=== PATIENT | male | born 1940 | race Caucasian/White ===

== ENCOUNTER 2016-05-17 14:09 | Inpatient (IN) | payer OTHER, BC ==
--- NOTE | 2016-05-17 14:46 | EDPHY ---
H & P Smoking Status: Never smoked Time Seen by Provider: 05/17/16 14:27 HPI/ROS: Chief complaint. supra pubic catheter problem HPI. Patient is 76-year-old male who has a suprapubic catheter in place because the patient has a history of transverse myelitis. The patient tells me that 1 week ago the catheter was changed and he believes they put in a smaller diameter catheter. Since then it has been leaking around the catheter. Urine is maybe also had some blood in it and has been a little bit cloudy. However he has no pain or fever. However the family says that the patient has been shaking quite a bit ROS Constitutional. no fever/chills, no weakness Eyes. no problems with vision ENT. no sore throat, no nasal drainage Cardiovascular. no chest pain Respiratory. no shortness of breath, no cough Abdominal. no abdominal pain, no nausea/vomiting, no diarrhea . Leaking around suprapubic catheter MS. no calf pain/swelling, no neck/back pain, no joint pain Skin. no rash Lymph. no swollen glands Neuro. no headache, no dizziness, no difficulty walking or with speech (Pedrito Plasencia) Past Medical/Surgical History: Past medical history transverse myelitis, atrial fibrillation, diabetes, hypertension, chronic sacral wound (Pedrito Plasencia) Social History: , nonsmoker, no alcohol (Pedrito Plasencia) Physical Exam: General Appearance: Alert well-developed male mild distress vital signs are stable. Afebrile Eyes: Pupils equal and round no pallor or injection. ENT, Mouth: Mucous membranes are moist. Respiratory: There are no retractions, lungs are clear to auscultation. Cardiovascular: Regular rate and rhythm. Gastrointestinal: Abdomen is soft and nontender, no masses, bowel sounds normal. Neurological: Awake and alert, sensory and motor exams grossly normal. Skin: Suprapubic catheter in place. There is gauze around and covering the catheter exit site from the skin. I removed this and the gauze soaked in urine Musculoskeletal: Neck is supple nontender. Extremities symmetrical, full range of motion. Psychiatric: Patient is oriented X 3, there is no agitation. (Pedrito Plasencia) Constitutional: Initial Vital Signs Temperature (C) 36.7 C 05/17/16 14:22 Heart Rate 79 05/17/16 14:22 Respiratory Rate 17 05/17/16 14:22 Blood Pressure 106/68 05/17/16 14:22 O2 Sat (%) 98 05/17/16 14:22 O2 Delivery Mode Room Air Allergies/Adverse Reactions: No Known Allergies Allergy (Unverified 05/17/16 14:16) Home Medications: Medication Instructions Recorded Acetaminophen [Tylenol 325mg (*)] 650 mg PO Q6 PRN 05/17/16 Apixaban [Eliquis] 5 mg PO BID 05/17/16 Aspirin [Aspirin 81mg (*)] 81 mg PO DAILY 05/17/16 Baclofen [Baclofen 10 mg (*)] 10 mg PO TID 05/17/16 Ferrous Sulfate [Ferrous Sulf 325 325 mg PO MOWEFR 05/17/16 MG (*)] Gabapentin [Neurontin 300 MG (*)] 300 mg PO TID 05/17/16 Hydrocortisone 1% [Hydrocortisone 1 carlton TP DAILY 05/17/16 1% cream (*)] Lisinopril [Zestril 20 mg (*)] 20 mg PO HS 05/17/16 Melatonin [Melatonin 3 MG (*)] 3 mg PO HS PRN 05/17/16 Metformin HCl [Metformin HCl ER] 500 mg PO DAILY 05/17/16 Methocarbamol [Robaxin 750 mg (*)] 750 mg PO QID 05/17/16 Metoprolol Succinate Xr [Toprol Xl 25 mg PO DAILY 05/17/16 25 mg (*)] Pantoprazole Sodium [Protonix 40mg 40 mg PO DAILY PRN 05/17/16 (*)] Sennosides/Docusate Sodium 1 each PO Q48H PRN 05/17/16 [Senna-Docusate Sodium Tablet] Simvastatin 80 mg PO HS 05/17/16 Tamsulosin HCl [Flomax 0.4 MG (*)] 0.4 mg PO HS 05/17/16 oxyCODONE/APAP 5/325 [Percocet 1 tab PO Q6H PRN 05/17/16 5/325 (*)] Medical Decision Making ED Course/Re-evaluation: Urine sent for urinalysis I consulted and discussed case with Dr. Hill, urology, who recommends an ultrasound to check for placement of the catheter. He recommends urinalysis which is underway. And then if no significant infection and the placement of the suprapubic catheter is correct using VESIcare as an anti cholinergic for spasm. (Pedrito Plasencia) The patient was signed out to me by Dr. Plasencia at shift change. UA and ultrasound are pending. Urinalysis shows infection. WBC is elevated. Lactic acid of 2.5 corresponding with sepsis. I spoke to Dr. Hare who will admit the patient. (Erica Gooden ) Other Provider: I assumed care of this patient Dr. Pedrito Plasencia at approximately 3:30 p.m.. At that time an ultrasound to assess the position of his suprapubic catheter was pending. I received a report on the ultrasound from Dr. Liam Lisa. He reported that the catheter is in the bladder but appears to be embedded in the posterior wall of the bladder with some surrounding bleeding. I spoke with Dr. Markie Hill who also spoke with Dr. Lisa. It was recommended that the patient's bladder be filled using a large syringe with the hope that the catheter tip will float away from the bladder wall. When interviewing the patient I learned that he has had leakage both around the site of his suprapubic insertion and also from the urethra. He has never had this prior to having the catheter changed last week. Patient's informed me that he was recently treated for hyponatremia. She is concerned that he is more lethargic than usual. At the time of my interview was awake and alert, responding appropriately. Family has requested blood work. It turns out that blood work had been ordered earlier, but not drawn. While waiting for blood to be drawn he developed a temperature of 38.5. This was treated with oral Tylenol. I re-examined him at that time. Lungs are clear. Heart is regular rate and rhythm. He is normotensive. Abdomen is soft and nontender. Blood work reveals white blood cell count 39220. Initial lactate is 2.5. As these results became available picture of sepsis began to emerge. His urinalysis shows bilirubin, leukocyte esterase, white blood cells, red blood cells, and bacteria. He has an indwelling suprapubic catheter. He was treated with IV ertapenem and IV vancomycin. He received a fluid bolus. Repeat lactate was 1.8. He is diagnosed with severe sepsis but does not have septic shock. He also has a known sacral ulcer that his has been caring for. He is being admitted to the hospitalist service by Dr. Jimmy Hare. (Erica Gooden) Care Turn Over: Dr. Gooden at 1500 (Pedrito Plasencia) - Data Points Laboratory Results: Laboratory Results 05/17/16 17:40 05/17/16 17:40 05/17/16 05/17/16 05/17/16 19:15 18:10 18:10 WBC RBC Hgb Hct MCV MCH MCHC RDW Plt Count MPV Neut % (Auto) Lymph % (Auto) Divide % (Auto) Eos % (Auto) Baso % (Auto) Nucleat RBC Rel Count Absolute Neuts (auto) Absolute Lymphs (auto) Absolute Monos (auto) Absolute Eos (auto) Absolute Basos (auto) Absolute Nucleated RBC Immature Gran % Immature Gran # PT 17.6 SEC H SEC (12.0-15.0) INR 1.45 H (0.83-1.16) APTT 29.8 SEC SEC (23.0-38.0) VBG Lactic Acid 1.8 mmol/L mmol/L (0.7-2.1) Sodium Potassium Chloride Carbon Dioxide Anion Gap BUN Creatinine Estimated GFR Glucose Calcium Total Bilirubin 0.6 mg/dL mg/dL (0.1-1.4) Urine Color Urine Appearance Urine pH Ur Specific [place] Urine Protein Urine Ketones Urine Blood Urine Nitrate Urine Bilirubin Urine Urobilinogen Ur Leukocyte Esterase Urine RBC Urine WBC Ur Epithelial Cells Triple Phos Crystals Amorphous Sediment Urine Bacteria Hyaline Casts Urine Mucus Ur Culture Indicated? Urine Glucose 05/17/16 05/17/16 05/17/16 17:40 17:40 17:40 WBC 23.70 10^3/uL H 10^3/uL (3.80-9.50) RBC 4.40 10^6/uL 10^6/uL (4.40-6.38) Hgb 12.7 g/dL L g/dL (13.7-17.5) Hct 38.2 % L % (40.0-51.0) MCV 86.8 fL fL (81.5-99.8) MCH 28.9 pg pg (27.9-34.1) MCHC 33.2 g/dL g/dL (32.4-36.7) RDW 16.1 % H % (11.5-15.2) Plt Count 311 10^3/uL 10^3/uL (150-400) MPV 8.8 fL fL (8.7-11.7) Neut % (Auto) 83.5 % H % (39.3-74.2) Lymph % (Auto) 7.6 % L % (15.0-45.0) Divide % (Auto) 7.3 % % (4.5-13.0) Eos % (Auto) 0.5 % L % (0.6-7.6) Baso % (Auto) 0.6 % % (0.3-1.7) Nucleat RBC Rel Count 0.0 % % (0.0-0.2) Absolute Neuts (auto) 19.79 10^3/uL H 10^3/uL (1.70-6.50) Absolute Lymphs (auto) 1.79 10^3/uL 10^3/uL (1.00-3.00) Absolute Monos (auto) 1.73 10^3/uL H 10^3/uL (0.30-0.80) Absolute Eos (auto) 0.12 10^3/uL 10^3/uL (0.03-0.40) Absolute Basos (auto) 0.14 10^3/uL H 10^3/uL (0.02-0.10) Absolute Nucleated RBC 0.00 10^3/uL 10^3/uL (0-0.01) Immature Gran % 0.5 % % (0.0-1.1) Immature Gran # 0.13 10^3/uL H 10^3/uL (0.00-0.10) PT INR APTT VBG Lactic Acid 2.5 mmol/L H mmol/L (0.7-2.1) Sodium 135 mEq/L mEq/L (134-144) Potassium 4.7 mEq/L mEq/L (3.5-5.2) Chloride 96 mEq/L L mEq/L (97-110) Carbon Dioxide 25 mEq/l mEq/l (22-31) Anion Gap 14 mEq/L mEq/L (8-16) BUN 27 mg/dL H mg/dL (7-23) Creatinine 1.0 mg/dL mg/dL (0.7-1.3) Estimated GFR > 60 Glucose 142 mg/dL H mg/dL (70-100) Calcium 9.6 mg/dL mg/dL (8.5-10.4) Total Bilirubin Urine Color Urine Appearance Urine pH Ur Specific [place] Urine Protein Urine Ketones Urine Blood Urine Nitrate Urine Bilirubin Urine Urobilinogen Ur Leukocyte Esterase Urine RBC Urine WBC Ur Epithelial Cells Triple Phos Crystals Amorphous Sediment Urine Bacteria Hyaline Casts Urine Mucus Ur Culture Indicated? Urine Glucose 05/17/16 16:10 WBC RBC Hgb Hct MCV MCH MCHC RDW Plt Count MPV Neut % (Auto) Lymph % (Auto) Divide % (Auto) Eos % (Auto) Baso % (Auto) Nucleat RBC Rel Count Absolute Neuts (auto) Absolute Lymphs (auto) Absolute Monos (auto) Absolute Eos (auto) Absolute Basos (auto) Absolute Nucleated RBC Immature Gran % Immature Gran # PT INR APTT VBG Lactic Acid Sodium Potassium Chloride Carbon Dioxide Anion Gap BUN Creatinine Estimated GFR Glucose Calcium Total Bilirubin Urine Color YELLOW Urine Appearance TURBID Urine pH 9.0 H (5.0-7.5) Ur Specific [place] 1.029 (1.002-1.030) Urine Protein 3+ H (NEGATIVE) Urine Ketones NEGATIVE (NEGATIVE) Urine Blood NEGATIVE (NEGATIVE) Urine Nitrate NEGATIVE (NEGATIVE) Urine Bilirubin POSITIVE H (NEGATIVE) Urine Urobilinogen NEGATIVE EU EU (0.2-1.0) Ur Leukocyte Esterase 2+ H (NEGATIVE) Urine RBC 50-182 /hpf H /hpf (0-3) Urine WBC 50-182 /hpf H /hpf (0-3) Ur Epithelial Cells TRACE /lpf /lpf (NONE-1+) Triple Phos Crystals PRESENT /hpf /hpf (NONE-1+) Amorphous Sediment PRESENT /hpf /hpf (NONE-1+) Urine Bacteria 2+ /hpf H /hpf (NONE SEEN) Hyaline Casts 15-25 /lpf H /lpf (0-1) Urine Mucus 3+ /lpf H /lpf (NONE-1+) Ur Culture Indicated? INDICATED H (NI) Urine Glucose NEGATIVE (NEGATIVE) Medications Given: Discontinued Medications Acetaminophen (Tylenol) 650 mg PO EDNOW ONE Stop: 05/17/16 17:50 Last Admin: 05/17/16 18:00 Dose: 650 mg Ertapenem 1 gm/ Sodium (Chloride) 100 mls @ 200 mls/hr IV EDNOW ONE PRN Reason: Protocol Stop: 05/17/16 18:42 Last Admin: 05/17/16 20:10 Dose: 100 mls Vancomycin/Sodium Chloride (Vancomycin 1 Gm (Premix)) 250 mls @ 250 mls/hr IV EDNOW ONE PRN Reason: Protocol Stop: 05/17/16 19:12 Last Admin: 05/17/16 18:35 Dose: 250 mls Sodium Chloride (Ns *For Sepsis Order Set Only*) 2,041 ml 30 ml/kg (2041 ml) IV EDNOW ONE Stop: 05/17/16 18:07 Last Admin: 05/17/16 18:00 Dose: 2,041 ml Departure - Departure Disposition: [facility] Inpatient Acute Clinical Impression: UTI (urinary tract infection) Qualifiers: Urinary tract infection type: catheter-associated UTI Indwelling urinary catheter type: indwelling urethral catheter Encounter type: initial encounter Qualified Code(s): T83.511A - Infection and inflammatory reaction due to indwelling urethral catheter, initial encounter; N39.0 - Urinary tract infection , site not specified Sepsis Qualifiers: Sepsis type: sepsis due to unspecified organism Qualified Code(s): A41.9 - Sepsis, unspecified organism Condition: Fair
[2016-05-17 16:43] LABS: COLOR YELLOW; LEUKOCYTE ESTERASE,URINE 2+ (NEGATIVE); NITRITE,URINE NEGATIVE (NEGATIVE)
[2016-05-17 16:45] LABS: AMORPHOUS PRESENT /hpf (NONE-1+); BACTERIA 2+ /hpf (NONE SEEN); HYALINE CASTS 15-25 /lpf (0-1); MUCUS 3+ /lpf (NONE-1+); RBC,URINE 50-182 /hpf (0-3); WBC,URINE 50-182 /hpf (0-3)
[2016-05-17] MEDS ORDERED: ACETAMINOPHEN 325 MG TAB PO ONE (17:49)
[2016-05-17 17:57] LABS: % IMMATURE GRANULYOCYTES 0.5 % (0.0-1.1); ABSOLUTE IMMATURE GRANULOCYTES 0.13 10^3/uL (0.00-0.10); ADD DIFF? NO; ADD MORPH? NO; ADD SCAN? NO; ATYPICAL LYMPHOCYTE FLAG 0 (0-99); FRAGMENT RBC FLAG 0 (0-99); HEMATOCRIT 38.2 % (40.0-51.0); HEMOGLOBIN 12.7 g/dL (13.7-17.5); LEFT SHIFT FLG 10 (0-99); LIPEMIA HEMOLYSIS FLAG 80 (0-99); MEAN CELL HEMOGLOBIN 28.9 pg (27.9-34.1); MEAN CELL HEMOGLOBIN CONCENTR. 33.2 g/dL (32.4-36.7); MEAN CELL VOLUME 86.8 fL (81.5-99.8); MEAN PLATELET VOLUME 8.8 fL (8.7-11.7); PLATELET CLUMPS FLAG 0 (0-99); PLATELET COUNT 311 10^3/uL (150-400); RED CELL DISTRIBUTION WIDTH 16.1 % (11.5-15.2)
[2016-05-17] MEDS ORDERED: NS 1,000 ML BAG *FOR SEPSIS ORDER SET ONLY IV ONE (18:06)
[2016-05-17 18:10] LABS: ANION GAP 14 mEq/L (8-16); CALCIUM 9.6 mg/dL (8.5-10.4); CARBON DIOXIDE 25 mEq/l (22-31); CHLORIDE 96 mEq/L (97-110); GLOMERULAR FILTRATION RATE > 60; GLUCOSE 142 mg/dL (70-100); POTASSIUM 4.7 mEq/L (3.5-5.2); SODIUM 135 mEq/L (134-144)
[2016-05-17] MEDS ORDERED: VANCOMYCIN HCL/NORMAL SALINE 250 ML IV ONE (18:13)
[2016-05-17] MEDS ORDERED: ERTAPENEM 1 GM in NS 100 ML IV ONE (18:13)
[2016-05-17 18:18] LABS: BILIRUBIN,TOTAL 0.6 mg/dL (0.1-1.4); INR 1.45 (0.83-1.16); PROTIME(PATIENT) 17.6 SEC (12.0-15.0)
[2016-05-17 18:19] LABS: APTT 29.8 SEC (23.0-38.0)
[2016-05-17 18:52] LABS: LACGHOST ORDER
[2016-05-17] MEDS ORDERED: ZOLPIDEM TARTRATE 5 MG TAB PO PRN (20:16)
[2016-05-17] MEDS ORDERED: ONDANSETRON 4 MG/2 ML VIAL IVP PRN (20:16)
[2016-05-17] MEDS ORDERED: ACETAMINOPHEN 325 MG TAB PO PRN (20:16)
--- NOTE | 2016-05-17 20:24 | PDGENHP ---
History and Physical History and Physical: HISTORY AND PHYSICAL CC:Rigors and hematuria HISTORY: This patient who has a suprapubic catheter for neurologic reasons came into the ER initially tonight because of some gross hematuria with bloody urine coming from his catheter, as well as bloody urine coming around his catheter and through his urethra. He usually does not have urethral output. On history here in the ER however he does admit that he had some rigors at home today and had rigors again in the ER. Initially here he did not have fever but did develop fever in the ER. He has had no other new acute symptoms recently. Notably the patient did just travel here from [place] hoping to move here to [place] be near his daughter. They arrived just a couple days ago. Patient has history of transverse myelitis in August of 2015 in end up with a suprapubic catheter being placed for neurogenic bladder. He cannot stand or walk and uses a wheelchair. ROS: he has ongoing paralysis of legs, and ongoing discomfort and management issues with a complex sacrococcygeal pressure sore. His is taking care of this at home and changes dressings twice a day or more as needed for him. He also mentions that he chronically gets chest pains very frequently. Notably he does have a history of angiography confirmed coronary atherosclerosis. 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 They live in [place] but have just arrived here hoping to move here to [place] establish home hear any other daughter. MEDICATIONS: The patients list has been reconciled by our clinical pharmacist in the EMR. I have reviewed the list and ordered appropriate medicines. PHYSICAL EXAMINATION: Vital Signs: Highs temperature here 38.5 in the ER, other vital signs normal Channel Lip Wetter: sinus rhythm Examination: General: alert, oriented, good mentation, relaxed Skin: he has extensive decubitus skin changes in the gluteal cleft sacral and coccygeal area a lot of this is in various stages of healing but there is a very deep ulcer high in the gluteal cleft ; otherwise skin is warm, dry, good color, no rash HEENT: normal Neck: no mass or jvd Resps: relaxed Lungs: clear breath sounds Heart: regular, no murmur Abdomen: suprapubic catheter in place, the ostomy site looks good, there is slight urine drainage around the catheter, the current urine draining from the catheter is clear yellow though was with gross hematuria earlier per ER staff; otherwise soft, nondistended, nontender, +BS, no mass Upper Extremities: normal Lower Extremities: paralyzed, no edema, warm No Bleeding or bruising Neurologic: normal speech/language, normal supervisor buffing and pasting, no focal weakness IV site: looks normal LABORATORY DATA: white blood cell count 99032, mild anemia, BUN slightly elevated but creatinine normal RADIOLOGY STUDIES: chest x-ray, my review of images in the ER and my interpretation: Unremarkable chest x-ray Bladder ultrasound was done in the ER showing suprapubic catheter abutting the posterior aspect of the bladder with some evidence of bleeding ASSESSMENT: - acute febrile illness, suspect urinary tract infection associated with suprapubic catheter in place with catheter having been just changed a week ago (suspect CAUTI) - gross hematuria associated with urinary infection and suprapubic catheter but bladder draining well at this time and bleeding appears To have stopped - the patient is anticoagulated with Eliquis -Large and deep sacral/coccygeal decubitus ulcers with history of osteomyelitis status post prior surgery, all present on admission -Paraplegia from transverse myelitis -Coronary artery disease with a history of recurrent bouts of chest pain; I do not have good records to review at this time to allow me to determine whether it is felt that his chest pains are actually due to his coronary disease or due to other causes. If they are due to coronary disease it sounds like this would be a chronic stable angina at this time without heart failure. -Atrial fibrillation rate control with anticoagulation with Eliquis - patient new to this area just in last few days with no local primary or other physicians PLANS: - blood in urine cultures were obtained in the ER -Antibiotics were started in the ER including vancomycin and ertapenem ; at this time I will change to meropenem as he has had recent hospitalizations and may have potentially resistant g negatives - IV hydration -Continue his anticoagulation for now and follow closely I have reviewed the patient's case in detail with Dr. Erica Gooden I have reviewed the patient's past medical records as part of this assessment, including hospital records from [place] brought by the patient's
[2016-05-17] MEDS: NS 1,000 ML IV SCH (21:30)
[2016-05-17] MEDS ORDERED: PANTOPRAZOLE SODIUM 40 MG TAB PO PRN (23:00)
[2016-05-17] MEDS ORDERED: OXYCODONE/APAP 5/325 TAB PO PRN (23:00)
[2016-05-17] MEDS ORDERED: MELATONIN 3 MG TAB PO PRN (23:00)
[2016-05-18 04:55] LABS: ABSOLUTE IMMATURE GRANULOCYTES 0.21 10^3/uL (0.00-0.10); ADD DIFF? NO; ADD MORPH? NO; ADD SCAN? NO; ATYPICAL LYMPHOCYTE FLAG 0 (0-99); FRAGMENT RBC FLAG 0 (0-99); HEMATOCRIT 29.2 % (40.0-51.0); HEMOGLOBIN 9.8 g/dL (13.7-17.5); LEFT SHIFT FLG 10 (0-99); LIPEMIA HEMOLYSIS FLAG 80 (0-99); MEAN CELL HEMOGLOBIN 28.6 pg (27.9-34.1); MEAN CELL HEMOGLOBIN CONCENTR. 33.6 g/dL (32.4-36.7); MEAN CELL VOLUME 85.1 fL (81.5-99.8); MEAN PLATELET VOLUME 8.7 fL (8.7-11.7); PLATELET CLUMPS FLAG 10 (0-99); PLATELET COUNT 253 10^3/uL (150-400); RED BLOOD CELL COUNT 3.43 10^6/uL (4.40-6.38); RED CELL DISTRIBUTION WIDTH 16.1 % (11.5-15.2)
[2016-05-18 05:12] LABS: ANION GAP 6 mEq/L (8-16); CARBON DIOXIDE 25 mEq/l (22-31); CHLORIDE 105 mEq/L (97-110); CREATININE 0.9 mg/dL (0.7-1.3); GLOMERULAR FILTRATION RATE > 60; GLUCOSE 112 mg/dL (70-100); POTASSIUM 4.3 mEq/L (3.5-5.2); SODIUM 136 mEq/L (134-144)
[2016-05-18] MEDS: METHOCARBAMOL 750 MG TAB PO SCH ×4 (05:55→20:00)
[2016-05-18] MEDS: MEROPENEM 1 GM in NS 100 ML IV SCH ×3 (07:55→23:16)
[2016-05-18] MEDS: METOPROLOL SUCCINATE XR 25 MG TAB PO SCH (07:59)
[2016-05-18] MEDS: GABAPENTIN 300 MG CAP PO SCH ×3 (07:59→23:17)
[2016-05-18] MEDS: ASPIRIN 81 MG CHEWABLE TAB PO SCH (07:59)
[2016-05-18] MEDS: APIXABAN 5 MG TAB PO SCH ×2 (07:59→19:59)
[2016-05-18] MEDS: BACLOFEN 10 MG TAB PO SCH ×3 (08:00→23:17)
[2016-05-18] MEDS ORDERED: PNEUMOC 13-VAL CONJ-DIP CRM/PF 0.5 ML SYR IM ONE ×2 (08:25→10:43)
[2016-05-18] MEDS: HYDROCORTISONE 1% CREAM TP SCH (10:51)
--- NOTE | 2016-05-18 12:18 | HOSPPROG ---
Hospitalist Progress Note Assessment/Plan: Patient is a 76-year-old male who presented to the emergency room with rigors and hematuria. He has a suprapubic catheter in place. He has a history of transverse myelitis noted in August of 2015 and both suprapubic catheter for neurogenic bladder. Today is my 1st encounter with the patient. Chart reviewed. * Acute febrile illness /with significant leukocytosis/ most likely secondary to urinary tract infection - started on meropenem - urine culture and blood cultures sent and pending -patient has suprapubic in place/has some leakage -appreciate Dr Atkins * sepsis due to the above - lactate improved with hydration - was febrile on admission with elevated white blood cell count * gross hematuria - patient is on Eliquis * decubitus ulcers in the sacrococcygeal area /present on admission -appreciate wound care -Dr Bullock to see -MRI today to r/u any abscess *DM2 -placed metformin on hold/ glucoses overall stable * transverse myelitis history with paraplegia * atrial fibrillation - anticoagulated with Eliquis * history of coronary artery disease -no c/o cp *anemia -follow/unsure of his baseline *DVT prophylaxis -on Eliquis *Plan: Dr Atkins and Dr Bullock to see/ appeciate their involvement/ recheck labs in a.m. Subjective: Fernando is feeling better since being admitted. Has no c/o pain. Objective: Vital Signs Temp Pulse Resp BP Pulse Ox 36.6 C 77 15 122/68 H 98 05/18/16 07:34 05/18/16 07:34 05/18/16 07:34 05/18/16 07:34 05/18/16 07:34 Laboratory Results 05/18/16 04:31 05/18/16 04:31 05/17/16 05/18/16 05/19/16 05:59 05:59 05:59 Intake Total 2100 120 Output Total 1350 Balance 750 120 PT 17.6 SEC (12.0-15.0) H 05/17/16 18:10 INR 1.45 (0.83-1.16) H 05/17/16 18:10 - Physical Exam Constitutional: appears nourished, chronically ill appearing Eyes: PERRL Ears, Nose, Mouth, Throat: hearing normal Cardiovascular: regular rate and rhythym Respiratory: no respiratory distress Gastrointestinal: normoactive bowel sounds, other (suprapubic catheter in place / draining yellow urine) Skin: other (wound dressing in place on coccyx area) Musculoskeletal: other (lower ext paraplegia) Neurologic: AAOx3 Psychiatric: interacting appropriately, not anxious ICD10 Worksheet Patient Problems: Problems Problem Status Onset Sepsis Acute UTI (urinary tract infection) Acute
--- NOTE | 2016-05-18 13:46 | WOCRNPDOC ---
WOCRN Advanced Assessment Note - Skin Integrity Problem, Advanced Assess Coccyx Pressure Injury Dressing Type: Allevyn Life Dressing Description: Intact, Shadowed Exudate Amount: Moderate Exudate Characteristic(s): Bloody Integumentary Issue Intervention: Dressing Changed Juliet Wound Tissue: Scarred Wound Bed Color: Red Wound Bed Constitution: Tunneling (3.8 cm approximately around 7 oclock (toward midline)), Undermining (11-2 oclock 1 cm 9-11 oclock 2 cm) Wound Edges: Not Attached, Scarred, Thick Site Measurement - Head-to-Toe Length X Width X Depth (cm): 2x2x2 Pressure Injury Stage: Stage 4 Pressure Injury Present on Admit: Yes Skin Integrity Problem Comment: Bone palpable within wound bed. Wound bed that is visible is clean without any necrosis. Juliet wound skin was protected with Hockley and skin prep. Puracol Ag collagen applied to wound bed and then it was packed with Algidex Ag+ 1/4 inch packing. This was secured with upside down Allevyn Life. Dr. Atkins visualized wound bed and Bre FUENTES was in room for all care. Healing this wound will take extensive expertise. Recommend follow up at outpatient wound healing center. Patient may also benefit from [facility] wound closure program. Wound care will round again 05/20.
--- NOTE | 2016-05-18 16:09 | GCON ---
[f rep st] CONSULTATION INFECTIOUS DISEASE CONSULTATION DATE OF CONSULTATION: 05/18/2016 REFERRING PHYSICIAN: Alena Cutler NP REASON FOR CONSULTATION: Leukocytosis, UTI, and sacral wound for further evaluation and management. CHIEF COMPLAINT: Leaking around the suprapubic catheter. HISTORY OF PRESENTING ILLNESS: This is a 76-year-old male with a past medical history significant f or transverse myelitis diagnosed in 2016 with paraplegia and neurogenic bladder, status post suprapu bic catheter placement. Since that time, he has been dealing with recurrent urinary tract infection s and a sacrococcygeal wound infection. According to the , he had an MRSA infection related to that site greater than 8 months ago that she states he was treated for about 1 week's worth of antib iotics for. He had apparently surgery to the site as well. Since that time, he has been having jus t ongoing wound care management. Apparently he was also recently in a penitentiary, but she recentl y took him out of it and then they came here to [place] to stay with his their daughter. They arri arie here this past Tuesday, on May 16. He was feeling well prior to travel. He does state th at his suprapubic catheter was changed on May 11. The noted that the tubing appeared sm aller than it normally was in the past. Subsequently after that, he has had leaking around the site . Yesterday, they noticed that there was quite a bit of leaking around the suprapubic catheter and that the urine appeared blood-tinged. Thus, they brought him here for further evaluation. Upon ini tial evaluation, he was noted to have a temperature of 38.5 with a blood pressure of 106/68 and leuk ocytosis of 22,000 with a left shift. Blood cultures x2 sets were done and those are currently pend ing. He had a urinalysis done which showed urine WBCs of 50-182 with urine RBCs of 50-182, 2+ leuko cyte esterase, negative nitrites, 2+ bacteria. Cultures are growing out greater than 100,00 gram-ne gative rods, nonlactose charge master specialist. The patient was given Invanz and vancomycin yesterday in the ER and then was changed to meropenem today. White blood cell count has slightly improved to 20,000 wit h an ongoing left shift. The patient does feel a little bit better. He denied any obvious fevers o r shaking chills in the outpatient. He denied any abdominal pain, flank pain, or back pain. His wi fe has been caring for his wound and has been packing it. She states that she was not really able t o get much packing in the site. Occasionally the patient does have pain right at the coccyx area, e specially when he sits. Infectious Disease is now consulted for further evaluation and opinion. REVIEW OF SYSTEMS: CONSTITUTIONAL: Denies any fevers or shaking chills. HEAD: Denies any headach es. EYES: No change in vision. ENT: No sore throat, difficulty swallowing, ear pain, or ear drai nage. CARDIOVASCULAR: He states he had some intermittent chest pain previously, none currently. R ESPIRATORY: Denies any shortness of breath, cough, or sputum production. ABDOMEN: Denies any abdo christine pain or diarrhea, nausea or vomiting : He has a suprapubic catheter in place with leaking a round it. EXTREMITIES: Denies any swelling in the legs. MUSCULOSKELETAL: Denies any obvious join t swelling. SKIN: Denies any other rashes. Rest of 10-point review of systems essentially negativ e except as above. PAST MEDICAL HISTORY: Significant for transverse myelitis diagnosed in 2016 with paraplegia and mayuri rogenic bladder, coronary artery disease, type 2 diabetes mellitus, chronic decubitus ulcer with chr onic osteomyelitis. PAST SURGICAL HISTORY: Significant for partial coccygectomy and suprapubic catheter. SOCIAL HISTORY: He is a nonsmoker. Drinks alcohol socially. He lives with his . He was in a penitentiary briefly for wound care, but his recently took him out of it and came here to [facility] to move in with their daughter. Otherwise, they lived in [place] for greater than 55 years. FAMILY HISTORY: Significant for coronary artery disease. MEDICATIONS: As per MAY. ALLERGIES: No known drug allergies. PHYSICAL EXAMINATION: VITAL SIGNS: Temperature currently 36.9. Pulse is 64. Blood pressure is 11 8/80. Respiratory rate is 16. Saturation is 94% on room air. GENERAL: Patient is resting in bed in no acute respiratory distress. Awake, alert, and oriented x3. HEENT: Normocephalic, atraumatic . Pupils are equal, round, and reactive to light. There is no conjunctival injection or petechiae. Oropharynx is clear. There is no posterior pharyngeal erythema or thrush. CARDIOVASCULAR: S1, S 2. Regular rate and rhythm. RESPIRATORY: Clear to auscultate bilaterally. No rhonchi or rales ap preciated. ABDOMEN: Positive bowel sounds in all 4 quadrants. Soft, nontender, nondistended. : He has a suprapubic catheter in place. No obvious leaking at the present time. No erythema or in duration around the site as well. EXTREMITIES: No lower extremity edema. MUSCULOSKELETAL: No corina nt effusions. SKIN: Pertinent findings: He has a small sacrococcygeal wound which is 2 x 2.2 in d iameter. It, however, tunnels down about 3.8 cm. No obvious purulent material noted within, just b loody material. It does probe down to bone. Mild tenderness on palpation. ASSESSMENT: 1. Leukocytosis with pyuria, likely secondary to urinary tract infection. 2. Chronic sacrococcygeal wound with tunneling and tenderness, likely chronic osteomyelitis. Rule out deeper abscess pocket. PLAN: 1. At this point in time, patient is currently on meropenem. The urine culture shows gram-negative rods, nonlactose charge master specialist. Await official ID and sensitivity to adjust antibiotics as necessary. We will check a pelvic MRI to further evaluate wound and underlying bone supporting structures to r ule out any other abscess as well that might explain ongoing significant leukocytosis despite broad- spectrum antimicrobials. Wound [facility] Care was apartment coordinator rdinated with the hospitalist team. Recommend surgical consultation to also further evaluate as madison deal 2. Cath, ongoing leaking around the suprapubic catheter. He may require Urology come and change hi s suprapubic catheter as well. I thank you very much for providing this opportunity to care for your patient in consultation. /[id number]/MODL
[2016-05-18] MEDS ORDERED: metFORMIN SR 500 MG TAB PO SCH (17:00)
[2016-05-18] MEDS: SENNOSIDES/DOCUSATE SODIUM TAB PO PRN (19:59)
[2016-05-18] MEDS: TAMSULOSIN HCL 0.4 MG CAP PO SCH (19:59)
[2016-05-18] MEDS: ATORVASTATIN CALCIUM 40 MG TAB PO SCH (19:59)
[2016-05-18] MEDS: LISINOPRIL 20 MG TAB PO SCH (19:59)
[2016-05-18] MEDS ORDERED: GADOBUTROL 10 ML VIAL IVP ONE (21:03)
[2016-05-18] MEDS: NS 1,000 ML IV SCH (23:17)
[2016-05-19] MEDS: METHOCARBAMOL 750 MG TAB PO SCH ×4 (04:11→20:05)
[2016-05-19 05:17] LABS: % IMMATURE GRANULYOCYTES 0.8 % (0.0-1.1); ABSOLUTE IMMATURE GRANULOCYTES 0.13 10^3/uL (0.00-0.10); ADD DIFF? NO; ADD MORPH? NO; ADD SCAN? NO; ATYPICAL LYMPHOCYTE FLAG 0 (0-99); FRAGMENT RBC FLAG 0 (0-99); HEMATOCRIT 34.7 % (40.0-51.0); HEMOGLOBIN 11.2 g/dL (13.7-17.5); LEFT SHIFT FLG 0 (0-99); LIPEMIA HEMOLYSIS FLAG 80 (0-99); MEAN CELL HEMOGLOBIN 28.6 pg (27.9-34.1); MEAN CELL HEMOGLOBIN CONCENTR. 32.3 g/dL (32.4-36.7); MEAN CELL VOLUME 88.5 fL (81.5-99.8); MEAN PLATELET VOLUME 9.3 fL (8.7-11.7); PLATELET CLUMPS FLAG 0 (0-99); PLATELET COUNT 241 10^3/uL (150-400); RED BLOOD CELL COUNT 3.92 10^6/uL (4.40-6.38)
[2016-05-19 05:49] LABS: ALANINE AMINOTRANSFERASE 41 IU/L (21-72); ALBUMIN 3.4 g/dL (3.5-5.0); ALKALINE PHOSPHATASE 85 IU/L (38-126); ANION GAP 13 mEq/L (8-16); ASPARTATE AMINOTRANSFERASE 33 IU/L (17-59); BILIRUBIN,TOTAL 0.6 mg/dL (0.1-1.4); CALCIUM 9.3 mg/dL (8.5-10.4); CARBON DIOXIDE 20 mEq/l (22-31); CHLORIDE 106 mEq/L (97-110); CREATININE 0.8 mg/dL (0.7-1.3); GLOMERULAR FILTRATION RATE > 60; GLUCOSE 83 mg/dL (70-100); POTASSIUM 4.5 mEq/L (3.5-5.2); SODIUM 139 mEq/L (134-144); TOTAL PROTEIN 6.4 g/dL (6.3-8.2)
[2016-05-19] MEDS: APIXABAN 5 MG TAB PO SCH (08:42)
[2016-05-19] MEDS: GABAPENTIN 300 MG CAP PO SCH ×3 (08:42→20:07)
[2016-05-19] MEDS: BACLOFEN 10 MG TAB PO SCH ×3 (08:42→20:06)
[2016-05-19] MEDS: ASPIRIN 81 MG CHEWABLE TAB PO SCH (08:43)
[2016-05-19] MEDS: FERROUS SULFATE 325 MG TAB PO SCH (08:43)
[2016-05-19] MEDS: SENNOSIDES/DOCUSATE SODIUM TAB PO PRN (08:44)
[2016-05-19] MEDS: METOPROLOL SUCCINATE XR 25 MG TAB PO SCH (08:45)
[2016-05-19] MEDS: MEROPENEM 1 GM in NS 100 ML IV SCH (08:46)
[2016-05-19] MEDS: HYDROCORTISONE 1% CREAM TP SCH (09:38)
--- NOTE | 2016-05-19 11:33 | HOSPPROG ---
Hospitalist Progress Note Assessment/Plan: Patient is a 76-year-old male who presented to the emergency room with rigors and hematuria. He has a suprapubic catheter in place. He has a history of transverse myelitis noted in August of 2015 and both suprapubic catheter for neurogenic bladder. * Acute febrile illness /with significant leukocytosis/ most likely secondary to urinary tract infection - abx changed to Ceftriaxone - urine culture shows proteus mirabilis - blood cx show no growth -has suprapubic catheter in place (due paraplegia)/ per this was changed a week ago in [place]/ catheter has some leakage, but per his this is much improved. 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 Subjective: Fernando is feeling much better today/ no complaints. Objective: Vital Signs Temp Pulse Resp BP Pulse Ox 36.8 C 73 24 H 104/44 L 99 05/19/16 11:02 05/19/16 11:02 05/19/16 11:02 05/19/16 11:02 05/19/16 11:02 Laboratory Results 05/19/16 04:48 05/19/16 04:48 05/18/16 05/19/16 05/20/16 05:59 05:59 05:59 Intake Total 2100 2290 320 Output Total 1350 2900 Balance 750 -610 320 PT 17.6 SEC (12.0-15.0) H 05/17/16 18:10 INR 1.45 (0.83-1.16) H 05/17/16 18:10 - Physical Exam Constitutional: no apparent distress, chronically ill appearing Eyes: PERRL Ears, Nose, Mouth, Throat: hearing normal Cardiovascular: regular rate and rhythym Respiratory: no respiratory distress Gastrointestinal: normoactive bowel sounds Genitourinary: other (suprapubic catheter) Skin: warm Musculoskeletal: generalized weakness Neurologic: AAOx3 Psychiatric: interacting appropriately, not anxious ICD10 Worksheet Patient Problems: Problems Problem Status Onset Sepsis Acute UTI (urinary tract infection) Acute
--- NOTE | 2016-05-19 14:33 | PCMIDPN ---
Assessment/Plan: # Fever likely due complicated UTI with suprapubic cath in place, Proteus on cx , WBC improved, Tm 38.3 @1955 05/18 --plan 10 days of antibiotics, could use PO as long a blood cx remain negative --narrow antibiotic to ceftriaxone today, DC Merrem # Sacral OM h/o debridement 12/2105 with cx showing MRSA, proteus. MRI confirms stage 4 pressure ulcer, radiologic evidence OM --family reports "cleared of MRSA" --Appreciate surgical consult --Possible [facility] wound closure program microbiology 05/18 blood cx (2) NGTD 05/18 U Cx 100K Proteus Meds, Abx #2 meropenem 1gm IV q8h s/p 1 dose ertapenem Subjective: no c/o feels much better today Objective: Vital Signs Temp Pulse Resp BP Pulse Ox 36.8 C 73 24 H 104/44 L 99 05/19/16 11:02 05/19/16 11:02 05/19/16 11:02 05/19/16 11:02 05/19/16 11:02 Laboratory Results 05/19/16 04:48 05/19/16 04:48 05/18/16 05/19/16 05/20/16 05:59 05:59 05:59 Intake Total 2100 2290 320 Output Total 1350 2900 Balance 750 -610 320 - Physical Exam General Appearance: alert, no apparent distress EENT: No scleral icterus Respiratory: lungs clear Neck: supple Cardiac/Chest: regular rate, rhythm Extremities: No pedal edema, No swelling Abdomen: normal bowel sounds, non-tender, soft Male Genitalia: other (suprapubic insertion site without abn) Skin: No rash Neuro/Psych: alert, normal mood/affect, oriented x 3, motor weakness (LE R>L but able to lift leg against gravity on L, and able to move R leg), No facial droop, No sensory deficit - Time Spent With Patient Time Spent with Patient: greater than 35 minutes (discussed micro findings with daughter and , plans for narrowing antibiotics, wound care, surgical consult ) Time Spent with Patient: Greater than 35 minutes spent on this patients care, greater than 50% of time spent counseling, educating, and coordinating care regarding the above mentioned plan. ICD10 Worksheet Patient Problems: Problems Problem Status Onset Sepsis Acute UTI (urinary tract infection) Acute
--- NOTE | 2016-05-19 15:27 | GCON ---
DATE OF CONSULTATION: 05/19/2016 REFERRING PHYSICIAN: Alena Cutler NP REASON FOR CONSULTATION: Chronic sacral decubitus ulcer. HISTORY OF PRESENT ILLNESS: The patient is a 76-year-old man with a history of transverse myelitis diagnosed in 2016 with paraplegia, neurogenic bladder. He has a suprapubic catheter. He was admitt ed with leukocytosis, findings of urinary tract infection, and a chronic wound on his sacrum. Accor ding to his , he was treated for MRSA infection last year. Since admission, he has been receivi ng IV antibiotics with improvement in his leukocytosis. He has had care for his sacral wounds in [facility], including wound VAC therapy per his . 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 There was an associated presacr al inflammatory phlegmon and osteomyelitis of the tip of the coccyx without further abscess. PAST MEDICAL HISTORY: Transverse myelitis with paraplegia and neurogenic bladder, coronary artery d isease, type 2 diabetes, chronic wound. PAST SURGICAL HISTORY: Partial coccygectomy, suprapubic catheter. SOCIAL HISTORY: Nonsmoker. Occasional alcohol use. He lives with his and daughter, having re cently moved from [place]. FAMILY HISTORY: Noncontributory to wound. ALLERGIES: No known drug allergies. REVIEW OF SYSTEMS: A 10-point review of systems was negative, aside from the HPI. PHYSICAL EXAMINATION: GENERAL: A well-developed, well-nourished man, in no acute distress, lying i n hospital bed accompanied by and daughter. HEENT: Normocephalic, atraumatic. No hearing def icits. Pupils equal and round. No scleral icterus. Mucous membranes moist. NECK: Trachea midlin e. RESPIRATORY: No increased work of breathing. Clear to auscultation bilaterally. CARDIOVASCULA R: Regular rate and rhythm. SKIN: The sacral wound is approximately 2 cm in diameter; however, tu nnels greater than 3 cm toward the rectum. No purulence, surrounding erythema, or evidence of activ e infection. There is bone palpable on the base of the wound. PSYCH: Mood and affect normal. IMPRESSION AND PLAN: The patient is a 76-year-old man with a chronic sacral wound that tunnels, wit h radiographic evidence of osteomyelitis of the coccyx. We discussed surgical debridement in the op erating room of the skin, soft tissue, and bone, in order to remove any osteomyelitis and provide a healthy wound base to facilitate healing. We will also apply a wound VAC at the time of surgery. R isks include heart attack, stroke, blood clots, or . Also discussed risk of infection, bleedin g, or further delayed wound healing. He understands that the wound will likely be bigger before it begins to heal. He understands the risks and would like to proceed. We will schedule him for opera tive debridement hopefully on 05/20/2016. He will be NPO after midnight. He is on therapeutic anti biotics. The patient was seen and evaluated with Dr. Caridad Bullock who agrees with the above impression and manjit n. /[id number]/MODL
--- NOTE | 2016-05-19 17:06 | WOCRNPDOC ---
WOCRN Advanced Assessment Note - Skin Integrity Problem, Advanced Assess Right Ischial Tuberosity Pressure Injury Dressing Type: Allevyn Life Dressing Description: Clean/Dry, Intact Exudate Amount: Scant Exudate Color: Reddish/Yellow Exudate Characteristic(s): Serosanguinous Integumentary Issue Intervention: Visualized Under Dressing Juliet Wound Tissue: Scarred Juliet Wound Swelling: None Wound Bed Color: Red Site Odor: None Site Measurement - Head-to-Toe Length X Width X Depth (cm): 1.1cmx0.9cmx0.1cm Pressure Injury Stage: Stage 2 Pressure Injury Present on Admit: Yes Skin Integrity Problem Comment: Area of partial-thickness loss noted over R ischial tuberosity, consistent in appearance w/ stage II pressure injury. Wound margins are friable, indicative that this wound might be attributed, in part, to friction injury. Juliet-wound skin has extensive scarring and discoloration. Site re-covered w/ existing Allevyn, and report given to therapy teacher Nina. Left Medial Gluteal Cleft Dressing Type: Allevyn Life Dressing Description: Clean/Dry, Intact Exudate Amount: Scant Exudate Color: Reddish/Yellow Exudate Characteristic(s): Serosanguinous Integumentary Issue Intervention: Visualized Under Dressing Juliet Wound Tissue: Scarred Juliet Wound Swelling: None Wound Bed Color: Red Site Odor: None Site Measurement - Head-to-Toe Length X Width X Depth (cm): 0.7cmx0.4cmx0.1cm Skin Integrity Problem Comment: Small area of partial-thickness tissue loss noted, consistent w/ friction injury. Skin has a moist,shiny appearance which makes it vulnerable to this type of injury. Site re-covered w/ existing Allevyn and report given to therapy teacher Nina.
[2016-05-19] MEDS: ATORVASTATIN CALCIUM 40 MG TAB PO SCH (20:06)
[2016-05-19] MEDS: TAMSULOSIN HCL 0.4 MG CAP PO SCH (20:06)
[2016-05-19] MEDS: LISINOPRIL 20 MG TAB PO SCH (20:06)
[2016-05-20] MEDS: NS 1,000 ML IV SCH (03:41)
[2016-05-20] MEDS: METHOCARBAMOL 750 MG TAB PO SCH ×4 (05:38→21:03)
[2016-05-20] MEDS ORDERED: BUPIVACAINE/EPI 0.5% 30 ML SDV ONE ×2 (08:13→08:59)
--- NOTE | 2016-05-20 08:27 | HOSPPROG ---
Hospitalist Progress Note Assessment/Plan: Patient is a 76-year-old male who presented to the emergency room with rigors and hematuria. He has a suprapubic catheter in place. He has a history of transverse myelitis noted in August of 2015 and both suprapubic catheter for neurogenic bladder. * Acute febrile illness /with significant leukocytosis/ most likely secondary to urinary tract infection - abx changed to Ceftriaxone - urine culture shows proteus mirabilis - blood cx show no growth -has suprapubic catheter in place (due paraplegia)/ per this was changed a week ago in [place]/ catheter has some leakage-call into urology to further evaluate * sepsis due to the above - lactate improved with hydration - was febrile on admission with elevated white blood cell count * gross hematuria - patient is on Eliquis - resolved * decubitus ulcers in the sacrococcygeal area /present on admission -appreciate wound care -surgery today w Dr Bullock for debridement and wound vac placement *DM2 -placed metformin on hold/ glucoses overall stable * transverse myelitis history with paraplegia * atrial fibrillation - anticoagulated with Eliquis (on hold for tomorrow) * history of coronary artery disease -no c/o cp *anemia -follow/unsure of his baseline *DVT prophylaxis -Eliquis on hold for surgery this morning *Plan: OR this morning Subjective: Fernando has no complaints/ feeling well. Objective: Vital Signs Temp Pulse Resp BP Pulse Ox 36.4 C 64 16 107/56 L 93 05/20/16 07:05 05/20/16 07:05 05/20/16 07:05 05/20/16 07:05 05/20/16 07:05 Laboratory Results 05/19/16 04:48 05/19/16 04:48 05/19/16 05/20/16 05/21/16 05:59 05:59 05:59 Intake Total 2290 995 Output Total 2900 4000 450 Balance -610 -3005 -450 PT 17.6 SEC (12.0-15.0) H 05/17/16 18:10 INR 1.45 (0.83-1.16) H 05/17/16 18:10 - Physical Exam Constitutional: no apparent distress, appears nourished, not in pain Eyes: anicteric sclera Ears, Nose, Mouth, Throat: hearing normal Cardiovascular: regular rate and rhythym Respiratory: no respiratory distress Gastrointestinal: normoactive bowel sounds Skin: warm Musculoskeletal: generalized weakness Neurologic: AAOx3 Psychiatric: interacting appropriately ICD10 Worksheet Patient Problems: Problems Problem Status Onset Sepsis Acute UTI (urinary tract infection) Acute
--- NOTE | 2016-05-20 09:02 | SOAPPROG ---
SOAP Progress Note Assessment/Plan: Assessment: 76 yo with transverse myletis and sacral decubitus ulcer. I reviewed his records from December 2015 and he had debridement of coccyx for a fractured exposed coccyx and soft tissue with wound vac placement. Proceed with debridement and wound vac placement today. If vac leaks, then will need to look for an alternative dressing Consent reviewed and his signed it Plan: 05/20/16 08:59 Objective: Vital Signs Temp Pulse Resp BP Pulse Ox 36.4 C 64 16 107/56 L 93 05/20/16 07:05 05/20/16 07:05 05/20/16 07:05 05/20/16 07:05 05/20/16 07:05 Laboratory Results 05/19/16 04:48 05/19/16 04:48 05/19/16 05/20/16 05/21/16 05:59 05:59 05:59 Intake Total 2290 995 Output Total 2900 4000 450 Balance -610 -3005 -450 PT 17.6 SEC (12.0-15.0) H 05/17/16 18:10 INR 1.45 (0.83-1.16) H 05/17/16 18:10 ICD10 Worksheet Patient Problems: Problems Problem Status Onset Sepsis Acute UTI (urinary tract infection) Acute
[2016-05-20] MEDS ORDERED: MIDAZOLAM 2 MG/2 ML VIAL ONE ×2 (09:06→09:27)
[2016-05-20] MEDS ORDERED: LIDOCAINE HCL 160 MG/4 ML LTA KIT TP ONE (09:29)
[2016-05-20] MEDS ORDERED: REMIFENTANIL HCL 1 MG VIAL ONE (09:29)
[2016-05-20] MEDS ORDERED: fentaNYL 100 MCG/2 ML INJ ONE (09:29)
[2016-05-20] MEDS ORDERED: PROPOFOL/EMULSION 500 MG/50 ML BOTTLE IV ONE (09:29)
[2016-05-20] MEDS ORDERED: LIDOCAINE 2% 5 ML SDV ONE (09:34)
[2016-05-20] MEDS ORDERED: epHEDrine SULFATE 10 MG/ML SYR ONE ×2 (09:56)
[2016-05-20] MEDS ORDERED: DEXAMETHASONE 4 MG/ML VIAL ONE (10:09)
[2016-05-20] MEDS ORDERED: ONDANSETRON 4 MG/2 ML VIAL ONE (10:09)
[2016-05-20] MEDS: ASPIRIN 81 MG CHEWABLE TAB PO SCH (10:23)
--- NOTE | 2016-05-20 10:57 | POSTOPPROG ---
Post Op Note Date of Operation: 05/20/16 Surgeon: Caridad Bullock Anesthesiologist: trey Anesthesia: GET(General Endotracheal) Pre-op Diagnosis: sacral decubitus ulcer with osteo Post-op Diagnosis: same Indication: 76 yo with transverse myleitis and osteo Procedure: debride skin soft tissue and Bone Findings: 5.4x4x3 Inf/Abcess present in the surg proc area at time of surgery?: Yes Depth: Deep Incisional (Fascial) EBL: Minimal Drains: Wound Vac Specimen(s): bone for micro and path
--- NOTE | 2016-05-20 11:51 | GOP ---
DATE OF OPERATION: 05/20/2016 SURGEON: Caridad Bullock MD ANESTHESIA: General. ANESTHESIOLOGIST: Dao Manuel MD PREOPERATIVE DIAGNOSIS: Sacral decubitus ulcer with osteomyelitis. POSTOPERATIVE DIAGNOSIS: Sacral decubitus ulcer with osteomyelitis. PROCEDURE PERFORMED: Debridement of skin and soft tissue, and bone with placement of tissue derived skin substitute and wound VAC. FINDINGS: The wound measures 5.4 x 4 x 3 cm. AMIOFILL AF [id number]. SPECIMENS: Bone for microbiology and pathology. ESTIMATED BLOOD LOSS: Minimal. INDICATIONS: The patient is a 76-year-old man with transverse myelitis, sacral decubitus ulcer and MRI with osteomyelitis of the bone. He had a previous surgery in December where debridement of bone was performed. DESCRIPTION OF PROCEDURE: The patient was brought into the operating room, placed supine on the table, and general anesthesia was administered. He was then placed in the prone position. All bony prominences were padded. His bottom was prepped with Betadine and draped in the usual sterile fashion. I made an ellipse around the wound and dissected out some scar tissue and necrotic tissue. I immediately encountered soft bone. I used a rongeur to clip away portions of the coccyx. I submitted this to Microbiology and to pathology. The remaining bone was extremely hard and appeared healthy. Hemostasis was achieved with electrocautery. I placed Amiofill in the wound and then placed a wound VAC. He tolerated the procedure well. /[id number]/MODL MTDD
[2016-05-20] MEDS: HYDROCORTISONE 1% CREAM TP SCH (12:19)
[2016-05-20] MEDS: METOPROLOL SUCCINATE XR 25 MG TAB PO SCH (12:19)
[2016-05-20] MEDS: BACLOFEN 10 MG TAB PO SCH ×4 (12:21→21:04)
[2016-05-20] MEDS: GABAPENTIN 300 MG CAP PO SCH ×3 (12:21→21:03)
--- NOTE | 2016-05-20 15:02 | WOCRNPDOC ---
WOCRN Advanced Assessment Note - Skin Integrity Problem, Advanced Assess Sacrum Pressure Injury Dressing Type: Wound Vac (changed patient to a bridge dressing across R hip) Integumentary Issue Intervention: Dressing Changed Skin Integrity Problem Comment: Per Dr. Bullock, I assessed vac dressing placed in OR this morning and decided to swap existing trac pad on coccyx for a bridge dressing draped across patient's R hip. Previous trac pad was cut away from dressing, existing foam dressing was left in place undisturbed, new drape w/ pre -cut opening was applied over the foam, and vac bridge dressing was adhered. Vac tx resumed at 125mmHg low continuous w/ no leaks. operations welder Nellie present and assisting. Wound RN will round on patient tomorrow to monitor integrity of dressing.
[2016-05-20] MEDS ORDERED: MAGNESIUM HYDROXIDE 30 ML UDCUP PO PRN (17:27)
[2016-05-20] MEDS ORDERED: BISACODYL 10 MG SUPP PR PRN (17:27)
[2016-05-20] MEDS ORDERED: LACTULOSE 20 GM/30 ML UDCUP PO PRN (17:27)
[2016-05-20] MEDS: POLYETHYLENE GLYCOL 3350 17 GM PKT PO SCH (17:38)
--- NOTE | 2016-05-20 20:33 | PDCONSULT ---
Meal Packer Note: Pt seen at 11:30am 05/20/16 History and Physical Stated Complaint: hx of transverse myelitis, bleading/leaking around urinary catheter Chief Complaint Nursing Narrative: UTI, leakage Time Seen by Provider: 05/17/16 14:27 HPI/ROS: Consult requested for evaluation of SPT/urethral leakage. He has a history of transverse myelitis dx last year. Has neurogenic bladder managed with SPT. Last changed 1 week ago. Pt does not feel catheter is sitting correctly. Admitted with UTI and decubitus. Leaking from penis and around SPT associated with pelvic pain. No fever. 3rd UTI since SPT placed last year. No nausea or vomiting. No hematuria. Source: Patient, Family - Personal History PMH: Reviewed and summarized in chart Current Tetanus/Diphtheria Vaccine: Unsure Current Tetanus Diphtheria and Acellular Pertussis (TDAP): Unsure Smoking Status: Never smoked Significant Family History: No pertinent family hx - Medical/Surgical History Hx Asthma: No Hx Chronic Respiratory Disease: No Hx Diabetes: Yes Hx Cardiac Disease: Yes Hx Renal Disease: Yes Hx Splenectomy or Spleen Trauma: No Other PMH: transverse myelitis, atrial fibrillation, DM2, HTN, chronic sacral wound - Physical Exam Exam: AOX4 NCAT neck supple no increase in respiratory effort heart regular abd soft, nt, nd SPT site with small amount of exudate, no erythema or evidence of skin infection bilateral LE atrophy Constitutional: Initial Vital Signs Temperature (C) 36.7 C 05/17/16 14:22 Heart Rate 79 05/17/16 14:22 Respiratory Rate 17 05/17/16 14:22 Blood Pressure 106/68 05/17/16 14:22 O2 Sat (%) 98 05/17/16 14:22 O2 Delivery Mode Room Air Allergies/Adverse Reactions: No Known Allergies Allergy (Unverified 05/17/16 14:16) Home Medications: Medication Instructions Recorded Acetaminophen [Tylenol 325mg (*)] 650 mg PO Q6 PRN 05/17/16 Apixaban [Eliquis] 5 mg PO BID 05/17/16 Aspirin [Aspirin 81mg (*)] 81 mg PO DAILY 05/17/16 Baclofen [Baclofen 10 mg (*)] 10 mg PO TID 05/17/16 Ferrous Sulfate [Ferrous Sulf 325 325 mg PO MOWEFR 05/17/16 MG (*)] Gabapentin [Neurontin 300 MG (*)] 300 mg PO TID 05/17/16 Hydrocortisone 1% [Hydrocortisone 1 carlton TP DAILY 05/17/16 1% cream (*)] Lisinopril [Zestril 20 mg (*)] 20 mg PO HS 05/17/16 Melatonin [Melatonin 3 MG (*)] 3 mg PO HS PRN 05/17/16 Metformin HCl [Metformin HCl ER] 500 mg PO DAILY 05/17/16 Methocarbamol [Robaxin 750 mg (*)] 750 mg PO QID 05/17/16 Metoprolol Succinate Xr [Toprol Xl 25 mg PO DAILY 05/17/16 25 mg (*)] Pantoprazole Sodium [Protonix 40mg 40 mg PO DAILY PRN 05/17/16 (*)] Sennosides/Docusate Sodium 1 each PO Q48H PRN 05/17/16 [Senna-Docusate Sodium Tablet] Simvastatin 80 mg PO HS 05/17/16 Tamsulosin HCl [Flomax 0.4 MG (*)] 0.4 mg PO HS 05/17/16 oxyCODONE/APAP 5/325 [Percocet 1 tab PO Q6H PRN 05/17/16 5/325 (*)] A/P Assessment: Neurogenic bladder due to TM UTI abx per primary team Incontinence likely due to bladder spasms Bladder spasms may be due to spt placement, uti, or neurogenic detrusor instability. SPT changed at bedside to new 24F [address] way. Complicated by pt anatomy, decibitus, etc. May need anticholinergic if spasms persist. Pt can f/u as outpatient
[2016-05-20] MEDS: LISINOPRIL 20 MG TAB PO SCH (21:00)
[2016-05-20] MEDS: SENNOSIDES/DOCUSATE SODIUM TAB PO SCH (21:03)
[2016-05-20] MEDS: ATORVASTATIN CALCIUM 40 MG TAB PO SCH (21:04)
[2016-05-20] MEDS: TAMSULOSIN HCL 0.4 MG CAP PO SCH (21:04)
[2016-05-21] MEDS: METHOCARBAMOL 750 MG TAB PO SCH ×3 (05:22→15:23)
[2016-05-21 05:32] LABS: % IMMATURE GRANULYOCYTES 0.3 % (0.0-1.1); ABSOLUTE IMMATURE GRANULOCYTES 0.03 10^3/uL (0.00-0.10); ADD DIFF? NO; ADD MORPH? NO; ADD SCAN? NO; ATYPICAL LYMPHOCYTE FLAG 10 (0-99); FRAGMENT RBC FLAG 0 (0-99); HEMATOCRIT 28.7 % (40.0-51.0); HEMOGLOBIN 9.6 g/dL (13.7-17.5); LEFT SHIFT FLG 0 (0-99); LIPEMIA HEMOLYSIS FLAG 80 (0-99); MEAN CELL HEMOGLOBIN 28.5 pg (27.9-34.1); MEAN CELL HEMOGLOBIN CONCENTR. 33.4 g/dL (32.4-36.7); MEAN CELL VOLUME 85.2 fL (81.5-99.8); MEAN PLATELET VOLUME 9.3 fL (8.7-11.7); PLATELET CLUMPS FLAG 10 (0-99); PLATELET COUNT 311 10^3/uL (150-400); RED BLOOD CELL COUNT 3.37 10^6/uL (4.40-6.38); RED CELL DISTRIBUTION WIDTH 15.6 % (11.5-15.2)
[2016-05-21 05:52] LABS: ALANINE AMINOTRANSFERASE 57 IU/L (21-72); ALBUMIN 3.1 g/dL (3.5-5.0); ALKALINE PHOSPHATASE 74 IU/L (38-126); ANION GAP 11 mEq/L (8-16); ASPARTATE AMINOTRANSFERASE 35 IU/L (17-59); BILIRUBIN,TOTAL 0.4 mg/dL (0.1-1.4); CALCIUM 9.2 mg/dL (8.5-10.4); CARBON DIOXIDE 23 mEq/l (22-31); CHLORIDE 105 mEq/L (97-110); CREATININE 0.7 mg/dL (0.7-1.3); GLOMERULAR FILTRATION RATE > 60; GLUCOSE 113 mg/dL (70-100); POTASSIUM 4.6 mEq/L (3.5-5.2); SODIUM 139 mEq/L (134-144); TOTAL PROTEIN 5.9 g/dL (6.3-8.2)
[2016-05-21 08:42] VITALS: RESP 18
[2016-05-21] MEDS: POLYETHYLENE GLYCOL 3350 17 GM PKT PO SCH (08:50)
[2016-05-21] MEDS: NS 1,000 ML IV SCH (08:51)
[2016-05-21] MEDS: METOPROLOL SUCCINATE XR 25 MG TAB PO SCH (08:52)
[2016-05-21] MEDS: GABAPENTIN 300 MG CAP PO SCH ×2 (08:52→15:23)
[2016-05-21] MEDS: SENNOSIDES/DOCUSATE SODIUM TAB PO SCH (08:52)
[2016-05-21] MEDS: FERROUS SULFATE 325 MG TAB PO SCH (08:52)
[2016-05-21] MEDS: BACLOFEN 10 MG TAB PO SCH ×2 (08:52→15:23)
[2016-05-21] MEDS: ASPIRIN 81 MG CHEWABLE TAB PO SCH (08:54)
[2016-05-21] MEDS: HYDROCORTISONE 1% CREAM TP SCH (08:56)
--- NOTE | 2016-05-21 10:45 | SOAPPROG ---
SOAP Progress Note Assessment/Plan: Assessment: 76yo M POD#1 s/p debridement sacral pressure ulcur Wound vac intact Plan transfer to [place] Acute OK to tx from surgical perspective Seen with Dr. Bullock S: feels "dry", thirsty, and slightly dizzy. Difficulty sleeping last night O: laying in bed, NAD No increased WOB Sacral WV intact without e/o leak. No surrounding erythema Plan: 05/21/16 10:43 Objective: Vital Signs Temp Pulse Resp BP Pulse Ox 36.7 C 61 18 150/71 H 100 05/21/16 08:00 05/21/16 08:00 05/21/16 08:00 05/21/16 08:00 05/21/16 08:00 Microbiology 05/20/16 10:12 Gram Stain - Final Other - Bone Laboratory Results 05/21/16 04:20 05/21/16 04:20 05/20/16 05/21/16 05/22/16 05:59 05:59 05:59 Intake Total 995 3393 Output Total 4000 3200 Balance -3005 193 PT 17.6 SEC (12.0-15.0) H 05/17/16 18:10 INR 1.45 (0.83-1.16) H 05/17/16 18:10 ICD10 Worksheet Patient Problems: Problems Problem Status Onset Sepsis Acute UTI (urinary tract infection) Acute
--- NOTE | 2016-05-21 10:48 | HOSPPROG ---
Hospitalist Progress Note Assessment/Plan: Patient is a 76-year-old male who presented to the emergency room with rigors and hematuria. He has a suprapubic catheter in place. He has a history of transverse myelitis noted in August of 2015 and both suprapubic catheter for neurogenic bladder. * urinary tract infection/ likely the source of fevers - on ceftriaxone - urine culture shows Proteus - blood culture show no growth - supra pubic catheter was changed yesterday by Dr. Mattson due to leakage/ appreciate his involvement * sepsis due to the above - lactate improved with hydration - was febrile on admission with elevated white blood cell count * gross hematuria - patient is on Eliquis - resolved * decubitus ulcers in the sacrococcygeal area /present on admission/ culture showing MRSA -appreciate wound care - status post debridement and wound vac placement will place on precautions *DM2 -placed metformin on hold/ glucoses overall stable * transverse myelitis history with paraplegia * atrial fibrillation - anticoagulated with Eliquis * history of coronary artery disease -no c/o cp *anemia -follow/unsure of his baseline *DVT prophylaxis -Eliquis *Plan: hopefully can go to [facility] today/ will discuss with Infectious Disease. Subjective: Fernando is feeling well but was not happy about being woken up for vital signs last night Objective: Vital Signs Temp Pulse Resp BP Pulse Ox 36.7 C 61 18 150/71 H 100 05/21/16 08:00 05/21/16 08:00 05/21/16 08:00 05/21/16 08:00 05/21/16 08:00 Microbiology 05/20/16 10:12 Gram Stain - Final Other - Bone Laboratory Results 05/21/16 04:20 05/21/16 04:20 05/20/16 05/21/16 05/22/16 05:59 05:59 05:59 Intake Total 995 3393 Output Total 4000 3200 Balance -3005 193 PT 17.6 SEC (12.0-15.0) H 05/17/16 18:10 INR 1.45 (0.83-1.16) H 05/17/16 18:10 - Physical Exam Constitutional: no apparent distress, chronically ill appearing Eyes: PERRL Ears, Nose, Mouth, Throat: hearing normal Cardiovascular: regular rate and rhythym Respiratory: no respiratory distress Gastrointestinal: normoactive bowel sounds Genitourinary: other (suprapubic ) Skin: warm, normal color Musculoskeletal: generalized weakness Neurologic: AAOx3 Psychiatric: interacting appropriately ICD10 Worksheet Patient Problems: Problems Problem Status Onset Sepsis Acute UTI (urinary tract infection) Acute
[2016-05-21] MEDS ORDERED: VANCOMYCIN HCL/NORMAL SALINE 250 ML IV SCH (11:30)
[2016-05-21 11:43] VITALS: BP 102/52; PULSE 71; TEMP 97.9; O2SAT 99
[2016-05-21] MEDS ORDERED: ALTEPLASE 2 MG VIAL IVP PRN (13:52)
--- NOTE | 2016-05-21 13:56 | PDIAF ---
- Diagnosis Diagnosis: MRSA OM Sacrum, Proteus complicated UTI Code Status: Full Code - Medication Management Discharge Medications: Medications to Continue on Transfer Acetaminophen [Tylenol 325mg (*)] 650 mg PO Q6 PRN 05/17/16 [Last Taken 05/17/16 ] Apixaban [Eliquis] 5 mg PO BID 05/17/16 [Last Taken 05/17/16 08:00] Aspirin [Aspirin 81mg (*)] 81 mg PO DAILY 05/17/16 [Last Taken 05/15/16] Baclofen [Baclofen 10 mg (*)] 10 mg PO TID 05/17/16 [Last Taken 05/17/16 08:00] Ferrous Sulfate [Ferrous Sulf 325 MG (*)] 325 mg PO MOWEFR 05/17/16 [Last Taken 05/17/16] Gabapentin [Neurontin 300 MG (*)] 300 mg PO TID 05/17/16 [Last Taken 05/17/16 08 :00] Hydrocortisone 1% [Hydrocortisone 1% cream (*)] 1 carlton TP DAILY 05/17/16 [Last Taken 05/17/16] Lisinopril [Zestril 20 mg (*)] 20 mg PO HS 05/17/16 [Last Taken 05/16/16] Melatonin [Melatonin 3 MG (*)] 3 mg PO HS PRN 05/17/16 [Last Taken 05/03/16] Metformin HCl [Metformin HCl ER] 500 mg PO DAILY 05/17/16 [Last Taken 05/17/16] Methocarbamol [Robaxin 750 mg (*)] 750 mg PO QID 05/17/16 [Last Taken 05/17/16 12:00] Metoprolol Succinate Xr [Toprol Xl 25 mg (*)] 25 mg PO DAILY 05/17/16 [Last Taken 05/17/16] Pantoprazole Sodium [Protonix 40mg (*)] 40 mg PO DAILY PRN 05/17/16 [Last Taken 05/16/16] Sennosides/Docusate Sodium [Senna-Docusate Sodium Tablet] 1 each PO Q48H PRN [Last Taken 05/13/16] Simvastatin 80 mg PO HS 05/17/16 [Last Taken 05/16/16] Tamsulosin HCl [Flomax 0.4 MG (*)] 0.4 mg PO HS 05/17/16 [Last Taken 05/14/16] oxyCODONE/APAP 5/325 [Percocet 5/325 (*)] 1 tab PO Q6H PRN 05/17/16 [Last Taken 05/16/16] Traveling Secretary Antibiotics: ceftriaxone 2gm IV daily, vancomycin 1gm IV [id number] Traveling Secretary Antibiotic Stop Date: 07/01/16 (Still has cultures & Path pending at [facility]) Discharge Medications: Refer to the Discharge Home Medication list for PRN reason. PICC Care - Routine: Yes - Labs/Radiology CBC Date: 05/24/16 (weekly, Tuesday) CMP Date: 05/24/16 (weekly, Tuesday) CRP Date: 05/24/16 (weekly, Tuesday) Vanco Trough Date and Time: next trough due 11am on 05/23/16 Call or Fax Lab and Imaging Results to: Call Dr. Amador at [phone] to follow up , ID of GNR on bone cx pending - Follow Up Care Current Providers and Referrals: Liam Hill MD [Medical Doctor] - As per Instructions NONE *PRIMARY CARE P,. [Primary Care Provider] - As per Instructions
--- NOTE | 2016-05-21 14:05 | PCMIDPN ---
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 Intraop exam + MRI c/ w sacral OM --plan 6 week IV, stop date 07/01/16 --add vancomycin today, will need trough in AM on Tuesday --hopeful to get to [facility] wound closure program, they can call me to follow up on cultures [phone] microbiology 05/18 blood cx (2) NGTD 05/18 U Cx 100K Proteus 05/20 Bone cx: MRSA 3+, NLF GNR rare Meds, Abx #4 ceftriaxone 1gm IV daily s/p 1 dose ertapenem and 2 days meropenem Subjective: non toxic male, pleasant No c/o Objective: Vital Signs Temp Pulse Resp BP Pulse Ox 36.6 C 71 18 102/52 L 99 05/21/16 11:42 05/21/16 11:42 05/21/16 11:42 05/21/16 11:42 05/21/16 11:42 Microbiology 05/20/16 10:12 Gram Stain - Final Other - Bone Laboratory Results 05/21/16 04:20 05/21/16 04:20 05/20/16 05/21/16 05/22/16 05:59 05:59 05:59 Intake Total 995 3393 Output Total 4000 3200 Balance -3005 193 - Physical Exam General Appearance: alert, no apparent distress EENT: No scleral icterus Respiratory: lungs clear Neck: supple Cardiac/Chest: regular rate, rhythm Extremities: No pedal edema Abdomen: non-tender, soft Male Genitalia: other (suprapubic cath) Skin: No diaphoresis, No rash Neuro/Psych: alert, normal mood/affect, oriented x 3 - Time Spent With Patient Time Spent with Patient: greater than 35 minutes Time Spent with Patient: Greater than 35 minutes spent on this patients care, greater than 50% of time spent counseling, educating, and coordinating care regarding the above mentioned plan. ICD10 Worksheet Patient Problems: Problems Problem Status Onset Sepsis Acute UTI (urinary tract infection) Acute
--- NOTE | 2016-05-21 14:25 | PDIAF ---
- Diagnosis Diagnosis: MRSA OM Sacrum, Proteus complicated UTI Code Status: Full Code - Medication Management Discharge Medications: Medications to Continue on Transfer Acetaminophen [Tylenol 325mg (*)] 650 mg PO Q6 PRN 05/17/16 [Last Taken 05/17/16 ] Apixaban [Eliquis] 5 mg PO BID 05/17/16 [Last Taken 05/17/16 08:00] Aspirin [Aspirin 81mg (*)] 81 mg PO DAILY 05/17/16 [Last Taken 05/15/16] Baclofen [Baclofen 10 mg (*)] 10 mg PO TID 05/17/16 [Last Taken 05/17/16 08:00] Ferrous Sulfate [Ferrous Sulf 325 MG (*)] 325 mg PO MOWEFR 05/17/16 [Last Taken 05/17/16] Gabapentin [Neurontin 300 MG (*)] 300 mg PO TID 05/17/16 [Last Taken 05/17/16 08 :00] Hydrocortisone 1% [Hydrocortisone 1% cream (*)] 1 carlton TP DAILY 05/17/16 [Last Taken 05/17/16] Lisinopril [Zestril 20 mg (*)] 20 mg PO HS 05/17/16 [Last Taken 05/16/16] Melatonin [Melatonin 3 MG (*)] 3 mg PO HS PRN 05/17/16 [Last Taken 05/03/16] Metformin HCl [Metformin HCl ER] 500 mg PO DAILY 05/17/16 [Last Taken 05/17/16] Methocarbamol [Robaxin 750 mg (*)] 750 mg PO QID 05/17/16 [Last Taken 05/17/16 12:00] Metoprolol Succinate Xr [Toprol Xl 25 mg (*)] 25 mg PO DAILY 05/17/16 [Last Taken 05/17/16] Pantoprazole Sodium [Protonix 40mg (*)] 40 mg PO DAILY PRN 05/17/16 [Last Taken 05/16/16] Sennosides/Docusate Sodium [Senna-Docusate Sodium Tablet] 1 each PO Q48H PRN [Last Taken 05/13/16] Simvastatin 80 mg PO HS 05/17/16 [Last Taken 05/16/16] Tamsulosin HCl [Flomax 0.4 MG (*)] 0.4 mg PO HS 05/17/16 [Last Taken 05/14/16] oxyCODONE/APAP 5/325 [Percocet 5/325 (*)] 1 tab PO Q6H PRN 05/17/16 [Last Taken 05/16/16] Acetaminophen [Tylenol 325mg (*)] 650 mg PO Q4HRS PRN #0 tab 05/21/16 [Last Taken Unknown] Ceftriaxone Na/Dextrose,Iso [Ceftriaxone 2 gm-D5w Bag] 2 gm IV DAILY #0 ml 05/21 [Last Taken Unknown] Polyethylene Glycol 3350 [Miralax 17 gm (*)] 17 gm PO DAILY #0 pkt 05/21/16 [ Last Taken Unknown] [facility] Antibiotics: ceftriaxone 2gm IV daily, vancomycin 1gm IV [id number] Cancer Registrar Antibiotic Stop Date: 07/01/16 (Still has cultures & Path pending at [facility]) Discharge Medications: Refer to the Discharge Home Medication list for PRN reason. PICC Care - Routine: Yes - Orders Services needed: Registered Nurse, Physical Therapy, Occupational Therapy Diet Recommendation: no restrictions on diet Diet Texture: Regular Texture Diet Wound Care Instructions: Coccyx wound care daily and prn. 1. Flush wound well with wound cleanser or NS and dry with gauze. 2. Skin prep mert wound. 3. Tear off a piece of puracol ag (or you may use babak Ag from wound cart) and pack lightly into the base of the wound cavities. 4. Then, Cut more 1/4 inch algidex Ag than you think you will need and pack tunnels and canyons fully but not tightly over the puracol or babak. Leave a tail of at least 2 cm. 5. Cover with [employer] - Labs/Radiology CBC Date: 05/24/16 (weekly, Tuesday) CMP Date: 05/24/16 (weekly, Tuesday) CRP Date: 05/24/16 (weekly, Tuesday) Vanco Trough Date and Time: next trough due 11am on 05/23/16 Call or Fax Lab and Imaging Results to: Call Dr. Amador at [phone] to follow up , ID of GNR on bone cx pending - Follow Up Care Current Providers and Referrals: Liam Hill MD [Medical Doctor] - As per Instructions NONE *PRIMARY CARE P,. [Primary Care Provider] - As per Instructions
--- NOTE | 2016-05-21 15:24 | GDS ---
DISCHARGE DIAGNOSES: 1. Urinary tract infection. 2. Sepsis due to this. 3. Gross hematuria. 4. 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 5. Diabetes type 2. 6. Transverse myelitis with a history of paraplegia. 7. Atrial fibrillation. 8. History of coronary artery disease. 9. Anemia. CONSULTATIONS: 1. Dr. Yashira Atkins. 2. Kalli Washington, physician automotive service assistant with Dr. Katie Bullock, surgeon. 3. Dr. Jermain Mattson, with Urology. HISTORY: Briefly, the patient is a 76-year-old male with a past medical history for transverse myelitis. This was diagnosed in 2016, resulting in paraplegia and neurogenic bladder. He has a suprapubic catheter in place. Since then, he has been dealing with recurrent urinary tract infections and a sacrococcygeal wound infection. He and his are from the [facility]. They moved to [place] to get more support with their daughter. On admission, he was noted to have a temperature of 38.5. He had a urinalysis performed, which showed a white blood cell count of 50-182 with urine red blood cells of 50 -182, 2+ leukocyte esterase, negative nitrites, 2+ bacteria. Cultures grew out Proteus mirabilis, and he is being treated with ceftriaxone for this. He was seen by the Infectious Disease team who recommended antibiotic treatment. In addition, he was seen and evaluated by Dr. Bullock for further evaluation of his sacrum. On 05/20, he had debridement of the sacral decubitus ulcer. It was noted he had osteomyelitis. At that time, a wound VAC was placed in. Also, during his stay, he was having leakage from the suprapubic catheter. He was seen by Dr. Mattson, who replaced his suprapubic catheter. He has done well with this. Today, the plan is for him to go to an acute rehab center for treatment of his wound. Antibiotics will be continued per the infectious disease team. HOSPITAL COURSE: Per problem: 1. Urinary tract infection. This was likely the source of his fevers on admission. He has no longer had any fevers. He is on ceftriaxone. Urine culture grew out Proteus. Will continue ceftriaxone. Vancomycin has been added to his regimen as of today. He also has a suprapubic catheter that was changed on 02/17/[address] Mattson due to ongoing leakage. This has since resolved. 2. Sepsis, resolved. 3. Gross hematuria, resolved. 4. MRSA osteomyelitis to the sacral area. His culture did show MRSA. He was placed on precautions. He will get aggressive wound care at the LTAC. 5. Diabetes type 2, stable. 6. Transverse myelitis history. He has some paraplegia and gets around with a wheelchair. 7. Atrial fibrillation. He is anticoagulated with Eliquis. 8. Coronary artery disease. No complaints of chest pain. 9. Anemia. This will be monitored in the longterm facility. CONDITION ON DISCHARGE: Stable. Blood pressure is 102/52, heart rate 71. Respiratory rate is 18. O2 sats on room air 99%. Temperature 36.6 Celsius. DISCHARGE MEDICATIONS: Please see the EMR. DISCHARGE INSTRUCTIONS: 1. Per care at the LTAC. 2. To follow up with Dr. Amador and Dr. Bullock for followup outpatient care. Greater than 30 minutes discharging and coordinating care. I, also, spoke with Reba JONES, who will be receiving the patient. Copy requested to: Dr. Amador /[id number]/MODL MTDD
--- NOTE | 2016-05-25 09:33 | PQFORM ---
PHYSICIAN QUERY FORM Needs Your Response This query form is being sent to you to assure this patient record is coded properly. Please respond to the question below: MECHANICAL PRESS OPERATOR QUESTION: Dear Dr. Bush, In reviewing this patient medical record it is documented in the H&P the patient was "suspected of having a Catheter associated urinary tract infection. ' Patient presented with leakage from the suprapubic catheter with gross hematuria. Documented in Dr. Mattson's consult this was the patients third UTI since the placement of the suprapubic catheter. Documented in Dr. Atkins's consult patient has ongoing leaking around his suprapubic catheter. It is also documented in the 05/19 Infectious progress note patient has a 'complicated UTI with suprapubic catheter in place.' Also documented in the discharge summary patient has been dealing with 'recurrent UTI's'. After study, should the diagnosis of 'Catheter Associated Urinary Tract Infection' be included in the discharge summary? x___ Yes No Other more appropriate diagnosis Unable to determine Thank you EDUARDA Case HIM/Coding Dept. [phone] INSTRUCTIONS FOR RESPONSE: Answer question by clicking on the "Edit Document" button. Move cursor to area below the stars. When complete, hit "Save." Click on the "Sign" button, then click "Sign" again. Type in your PIN and hit "Enter." MTDD
== END 2016-05-21 16:28 | DRG 981 ==
LOC: F3N 20:27 → F3E 05-19 10:50
PROVIDERS: ADMIT Internal Medicine; ATTEND Internal Medicine
PROC: 2W1 Placement, Anatomical Regions, Compression (ICD-10-PCS; principal; 2016-05-20 09:36)
PROC: 0HR Skin and Breast, Replacement (ICD-10-PCS; principal; 2016-05-20 09:36)
DX: T83.510A Infection and inflammatory reaction due to cystostomy catheter, initial encounter (principal); A41.02 Sepsis due to Methicillin resistant Staphylococcus aureus; N39.0 Urinary tract infection, site not specified; M46.28 Osteomyelitis of vertebra, sacral and sacrococcygeal region; G37.3 Acute transverse myelitis in demyelinating disease of central nervous system; G82.20 Paraplegia, unspecified; I48.91 Unspecified atrial fibrillation; I25.10 Atherosclerotic heart disease of native coronary artery without angina pectoris; D64.9 Anemia, unspecified; E11.9 Type 2 diabetes mellitus without complications; N31.9 Neuromuscular dysfunction of bladder, unspecified; B96.4 Proteus (mirabilis) (morganii) as the cause of diseases classified elsewhere; Z99.3 Dependence on wheelchair
CPT/HCPCS: 96365; 97110-GO; 97112-GP; 97162-GP; 97166-GO; 97530-GO; 97530-GP; 97535-GO; A9585; C9399; G0009; G8978-GP-CL; G8979-GP-CK; G8987-GO-CM; G8988-GO-CK; J0696; J1100; J1335; J2185; J2250; J2405; J2704; J3010; J3370